=== PATIENT | female | born 1945 | race Caucasian/White ===

== ENCOUNTER 2018-02-24 10:44 | Emergency (ER) | payer MEDICARE, OTHER ==
[~2018-02-24] VITALS: Ht 152.4 cm; Wt 77.1 kg
[~2018-02-24 10:44] MED LIST: CEPH500 PO; CYAN500 PO; Cipro500 MG PO; Cranberry300 MG PO; Flagyl500 MG PO; LOSA50 PO; OMEP20ER PO; RANI150 PO; VITAMIN D-32000 UNIT PO; VITAMIN D5000 UNIT PO; Zantac150 MG PO
[2018-02-24] MEDS ORDERED: HYDCHL12.5 PO (11:14)
[2018-02-24 11:16] LABS: BASOPHILS ABSOLUTE AUTO 0.07 K/mm3 (0.00-0.23); BASOPHILS PERCENT AUTO 1 % (0-2); EOSINOPHILS ABSOLUTE AUTO 0.03 K/mm3 (0.00-0.68); EOSINOPHILS PERCENT AUTO 0 % (0-6); Hematocrit 44.4 % (33.0-51.0); Hemoglobin 15.2 g/dL (11.5-16.0); IMMATURE GRAN ABSOLUTE AUTO 0.08 K/mm3 (0.00-0.10); IMMATURE GRAN PERCENT AUTO 1 % (0-1); LYMPHOCYTES ABSOLUTE AUTO 3.24 K/mm3 (0.84-5.20); LYMPHOCYTES PERCENT AUTO 23 % (21-46); MONOCYTES ABSOLUTE AUTO 1.03 K/mm3 (0.16-1.47); MONOCYTES PERCENT AUTO 7 % (4-13); Mean Corpuscular HGB 34.4 pg (26.0-34.0); Mean Corpuscular HGB Conc 34.2 g/dL (31.5-36.5); Mean Corpuscular Volume 101 fL (80-100); Mean Platelet Volume 9.7 fL (9.1-12.4); NEUTROPHILS ABSOLUTE AUTO 9.91 K/mm3 (1.96-9.15); NEUTROPHILS PERCENT AUTO 69 % (41-73); Platelet Count 137 K/mm3 (150-400); RDW Coefficient Variation 13.3 % (11.7-14.2); RDW Standard Deviation 49.4 fL (35.1-46.3); Red Blood Cell Count 4.42 M/mm3 (3.80-5.20); White Blood Cell Count 14.36 K/mm3 (4.00-11.30)
[2018-02-24 11:23] LABS: Source, Urine Clean Catch
[2018-02-24 11:25] LABS: Bilirubin, Urine Neg (Neg); Blood, Urine 4+ (Neg); Glucose Qualitative, Urine Neg (Neg); Ketones, Urine Neg (Neg); Leukocyte Esterase, Urine 3+ (Neg); Nitrite, Urine Neg (Neg); Protein, Urine 1+ (Neg); Specific Gravity, Urine 1.015 (1.003-1.022); Urobilinogen, Urine 1+ (Normal)
[2018-02-24 11:36] LABS: Alanine Aminotransfer (ALT/SGP 73 U/L (12-78); Albumin, Blood 2.9 g/dL (3.4-5.0); Albumin/Globulin Ratio 0.5 (0.8-1.8); Alk Phos 178 U/L (50-136); Anion Gap 7 mmol/L (6-16); Aspartate Aminotrans (AST/SGOT 68 U/L (12-37); Blood Urea Nitrogen 19 mg/dL (8-24); Bun/Creatinine Ratio 21.2 (12.0-20.0); CO2, Blood 20 mmol/L (21-32); Calcium, Blood 9.2 mg/dL (8.5-10.1); Chloride, Blood 109 mmol/L (98-108); Globulin, Blood 5.7 g/dL (2.2-4.0); Glomerular Filtration Rate >60 (60-); Glucose, Blood 105 mg/dL (70-99); Sodium, Blood 136 mmol/L (136-145); Total Protein, Blood 8.6 g/dL (6.4-8.2)
[2018-02-24 11:47] LABS: Appearance, Urine Cloudy (Clear); Color, Urine Yellow (P-Yellow)
[2018-02-24 11:48] LABS: Bacteria Many /hpf; Squamous Epithelial Cells Few /hpf (Few); White Blood Cells, Urine 25-50 /hpf (0-5)
[2018-02-24 11:49] LABS: Amorphous Light (0-Heavy)
[2018-02-24] MEDS ORDERED: CIPR500 PO (12:10)
[2018-02-24] MEDS ORDERED: Flagyl500 MG PO (12:10)
== END 2018-02-24 12:23 | disposition home or self-care (01) ==
LOC: ER 10:44
PROVIDERS: Emergency Medicine
DX: K57.92 Diverticulitis of intestine, part unspecified, without perforation or abscess without bleeding (principal); E80.7 Disorder of bilirubin metabolism, unspecified; Z88.5 Allergy status to narcotic agent; Z79.899 Other long term (current) drug therapy; Z79.2 Long term (current) use of antibiotics; I10 Essential (primary) hypertension; Z87.891 Personal history of nicotine dependence
CPT/HCPCS: 36415; 80053; 81001; 83690; 85025; 87077; 87086; 87186; 99284

== ENCOUNTER 2018-05-12 07:12 | Day surgery (SDC) | payer MEDICARE, OTHER ==
[~2018-05-12] VITALS: Ht 154.9 cm; Wt 74.6 kg
[~2018-05-12 07:12] MED LIST changes: +ACID REDUCER 1150 MG PO; +Adult Low Dose81 MG PO; +CIPR500 PO; +HYDCHL12.5 PO; +Hydrochloroth12.5 MG PO; +L-Glutamine500 MG PO; +MELA3; +Milk Thistle150 MG PO; +PROBIOTIC1 EAC1 PO; +TURMERIC500 M2 PO; +VITAMIN B-121000 MCG PO
[2018-05-12] MEDS ORDERED: Omeprazole20 M1 (07:43)
== END 2018-05-12 10:24 | disposition home or self-care (01) ==
LOC: ORSCSDS 07:12
PROVIDERS: Student in an Organized Health Care Education/Training Program
PROC: 3E0H8GC Introduction of Other Therapeutic Substance into Lower GI, Via Natural or Artificial Opening Endoscopic (ICD-10-PCS; principal; 2018-05-12 08:30)
PROC: 0DBK8ZX Excision of Ascending Colon, Via Natural or Artificial Opening Endoscopic, Diagnostic (ICD-10-PCS; principal; 2018-05-12 08:30)
PROC: 0DJ08ZZ Inspection of Upper Intestinal Tract, Via Natural or Artificial Opening Endoscopic (ICD-10-PCS; principal; 2018-05-12 08:30)
PROC: 0DBN8ZX Excision of Sigmoid Colon, Via Natural or Artificial Opening Endoscopic, Diagnostic (ICD-10-PCS; principal; 2018-05-12 08:30)
PROC: 0DBM8ZX Excision of Descending Colon, Via Natural or Artificial Opening Endoscopic, Diagnostic (ICD-10-PCS; principal; 2018-05-12 08:30)
DX: K21.9 Gastro-esophageal reflux disease without esophagitis (principal); K74.60 Unspecified cirrhosis of liver; K44.9 Diaphragmatic hernia without obstruction or gangrene; K76.6 Portal hypertension; K31.89 Other diseases of stomach and duodenum; Z86.010 Personal history of colon polyps; K57.30 Diverticulosis of large intestine without perforation or abscess without bleeding; D12.2 Benign neoplasm of ascending colon; D12.4 Benign neoplasm of descending colon; K63.5 Polyp of colon; E78.5 Hyperlipidemia, unspecified; I10 Essential (primary) hypertension; Z79.899 Other long term (current) drug therapy; Z79.82 Long term (current) use of aspirin
CPT/HCPCS: 88305; J0330; J1980; J2405

== ENCOUNTER 2018-07-21 10:36 | Day surgery (SDC) | payer MEDICARE, OTHER ==
[~2018-07-21] VITALS: Ht 152.4 cm; Wt 71.4 kg
[~2018-07-21 10:36] MED LIST changes: +Omeprazole20 M1
--- NOTE | 2018-07-21 14:06 | NUR ---
07/21/18 1406 Rosa Lai LATE ENTRY 1315: UPDATED FAMILY ON PROCEDURE DELAY AND THAT PT IS STABLE AND DOIN WELL. FAMILY SAID "THANK YOU" 1335: FAMILY UPDATED ON DELAY. 1355: FAMILY UPDATED ON DELAY.
--- NOTE | 2018-07-21 14:43 | NUR ---
07/21/18 1443 Laurie Barros 76ML NORMAL SALINE WITH INDIGO CARMINE USED TO RAISE MULTIPLE COLON POLYPS 6ML ELEVIEW USED TO RAISE ONE POLYP
--- NOTE | 2018-07-21 15:33 | NUR ---
07/21/18 1533 Jeana Gleason PT DENIED PAIN AND NAUSEA WHILE IN STEP DOWN. VSS WHILE IN STEP DOWN. RN ASSISTED PT TO GET CLEANED UP WITH BATH WIPES AND DRESS. RN ASSISTED PT TO THE RESTROOM VIA WHEELCHAIR. PT TAKEN OUT TO DAUGHTER'S CAR VIA WHEELCHAIR. PT SENT HOME WITH PERSONAL BELONGINGS AN DISCHARGE INSTRUCTION.
== END 2018-07-21 15:32 | disposition home or self-care (01) ==
LOC: ORSCSDS 10:36
PROVIDERS: Student in an Organized Health Care Education/Training Program
PROC: 0DBK8ZX Excision of Ascending Colon, Via Natural or Artificial Opening Endoscopic, Diagnostic (ICD-10-PCS; principal; 2018-07-21 12:00)
PROC: 0DBM8ZX Excision of Descending Colon, Via Natural or Artificial Opening Endoscopic, Diagnostic (ICD-10-PCS; principal; 2018-07-21 12:00)
DX: Z12.11 Encounter for screening for malignant neoplasm of colon (principal); Z86.010 Personal history of colon polyps; D12.2 Benign neoplasm of ascending colon; D12.4 Benign neoplasm of descending colon; K57.30 Diverticulosis of large intestine without perforation or abscess without bleeding; K74.60 Unspecified cirrhosis of liver; K64.9 Unspecified hemorrhoids; K21.9 Gastro-esophageal reflux disease without esophagitis; I10 Essential (primary) hypertension; Z87.891 Personal history of nicotine dependence; Z79.899 Other long term (current) drug therapy
CPT/HCPCS: 88305; J2405; J7120

== ENCOUNTER 2019-02-16 06:43 | Day surgery (SDC) | payer MEDICARE, OTHER ==
[~2019-02-16] VITALS: Ht 152.4 cm; Wt 73.3 kg
--- NOTE | 2019-02-16 07:34 | NUR ---
02/16/19 0734 BROOKE HARMON ONE BAD IV, ONE GOOD. HARD STICK
--- NOTE | 2019-02-16 08:21 | NUR ---
02/16/19 0821 Dorene Pearson SIMETHICONE USED DURING PROCEDURE.
--- NOTE | 2019-02-16 09:53 | NUR ---
02/16/19 0953 Bipin Tolbert PT DENIES ANYTHING PO IN STEPDOWN. PT STATES THEY ARE NAUSEOUS. DR BORGES IN ROOM AND NOTIFIED. PT MEDICATED PER ORDER, SEE EMAR. PT STATES THEY STILL FEEL "A LITTLE QUEASY." DR BORGES SAYS OK TO DISCHARGE. PT AND DAUGHTER INSTRUCTED TO JUST HAVE PT REST UP AND TAKE IT EASY FOR THE REST OF THE DAY. BOTH STATE AN UNDERSTANDING.
== END 2019-02-16 09:45 | disposition home or self-care (01) ==
LOC: ORSCSDS 06:43
PROVIDERS: Student in an Organized Health Care Education/Training Program
PROC: 0DBN8ZX Excision of Sigmoid Colon, Via Natural or Artificial Opening Endoscopic, Diagnostic (ICD-10-PCS; principal; 2019-02-16 08:00)
PROC: 0DBL8ZX Excision of Transverse Colon, Via Natural or Artificial Opening Endoscopic, Diagnostic (ICD-10-PCS; principal; 2019-02-16 08:00)
PROC: 0DBK8ZX Excision of Ascending Colon, Via Natural or Artificial Opening Endoscopic, Diagnostic (ICD-10-PCS; principal; 2019-02-16 08:00)
PROC: 0DBM8ZX Excision of Descending Colon, Via Natural or Artificial Opening Endoscopic, Diagnostic (ICD-10-PCS; principal; 2019-02-16 08:00)
DX: Z86.010 Personal history of colon polyps (principal); D12.2 Benign neoplasm of ascending colon; D12.3 Benign neoplasm of transverse colon; D12.4 Benign neoplasm of descending colon; K57.30 Diverticulosis of large intestine without perforation or abscess without bleeding; K64.8 Other hemorrhoids; I10 Essential (primary) hypertension; Z87.891 Personal history of nicotine dependence; Z79.899 Other long term (current) drug therapy; Z79.82 Long term (current) use of aspirin
CPT/HCPCS: 88305; J0330; J0461; J2405; J2704; J7120

== ENCOUNTER 2020-02-16 12:27 | Emergency (ER) | payer MEDICARE, OTHER ==
[~2020-02-16] VITALS: Ht 152.4 cm; Wt 72.6 kg
[~2020-02-16 12:27] MED LIST changes: +Aspir 8181 MG PO; +CEFP200 PO; +MECL12.5 PO
[2020-02-16 12:45] LABS: Source, Urine Clean Catch
[2020-02-16 12:52] LABS: Appearance, Urine Clear (Clear); Bilirubin, Urine Neg (Neg); Blood, Urine 3+ (Neg); Color, Urine Yellow (P-Yellow); Glucose Qualitative, Urine Neg (Neg); Ketones, Urine 1+ (Neg); Leukocyte Esterase, Urine 2+ (Neg); Nitrite, Urine Neg (Neg); Protein, Urine Neg (Neg); Specific Gravity, Urine 1.015 (1.003-1.022); Urobilinogen, Urine 1+ (Normal)
[2020-02-16 13:03] LABS: Transitional Epithelial Cells Few /hpf (0-Rare)
[2020-02-16 13:04] LABS: Squamous Epithelial Cells Mod /hpf (Few)
[2020-02-16 13:05] LABS: Bacteria Mod /hpf; Hyaline Casts 0-2 /lpf (0-2)
[2020-02-16 13:40] LABS: BASOPHILS ABSOLUTE AUTO 0.05 K/mm3 (0.00-0.23); BASOPHILS PERCENT AUTO 1 % (0-2); EOSINOPHILS PERCENT AUTO 3 % (0-6); Hematocrit 30.5 % (33.0-51.0); Hemoglobin 9.8 g/dL (11.5-16.0); IMMATURE GRAN ABSOLUTE AUTO 0.03 K/mm3 (0.00-0.10); IMMATURE GRAN PERCENT AUTO 0 % (0-1); LYMPHOCYTES ABSOLUTE AUTO 2.07 K/mm3 (0.84-5.20); LYMPHOCYTES PERCENT AUTO 27 % (21-46); MONOCYTES ABSOLUTE AUTO 0.79 K/mm3 (0.16-1.47); MONOCYTES PERCENT AUTO 10 % (4-13); Mean Corpuscular HGB 35.8 pg (26.0-34.0); Mean Corpuscular HGB Conc 32.1 g/dL (31.5-36.5); Mean Corpuscular Volume 111 fL (80-100); Mean Platelet Volume 11.3 fL (9.1-12.4); NEUTROPHILS PERCENT AUTO 60 % (41-73); Platelet Count 97 K/mm3 (150-400); RDW Coefficient Variation 14.6 % (11.7-14.2); RDW Standard Deviation 59.5 fL (35.1-46.3); Red Blood Cell Count 2.74 M/mm3 (3.80-5.20); White Blood Cell Count 7.74 K/mm3 (4.00-11.30)
[2020-02-16 13:51] LABS: Albumin, Blood 2.3 g/dL (3.4-5.0); Albumin/Globulin Ratio 0.4 (0.8-1.8); Bilirubin, Total 4.8 mg/dL (0.1-1.0); Bun/Creatinine Ratio 24.3 (12.0-20.0); Calcium, Blood 8.9 mg/dL (8.5-10.1); Creatinine, Blood 1.11 mg/dL (0.40-1.00); Globulin, Blood 5.7 g/dL (2.2-4.0); Potassium, Blood 3.9 mmol/L (3.5-5.5)
[2020-02-16] MEDS ORDERED: CEFP200 PO (14:31)
[2020-02-16] MEDS ORDERED: KETO10 PO (15:13)
[2020-02-17] MEDS ORDERED: ONDA4ODT MM (15:02)
[2020-02-17] MEDS ORDERED: Norco 5-325 Ta1 EACH PO (15:02)
== END 2020-02-16 15:15 | disposition home or self-care (01) ==
LOC: ER 12:27
PROVIDERS: Emergency Medicine; Physician Assistant
DX: N39.0 Urinary tract infection, site not specified (principal); I10 Essential (primary) hypertension; Z88.2 Allergy status to sulfonamides; Z88.8 Allergy status to other drugs, medicaments and biological substances; Z88.5 Allergy status to narcotic agent; Z79.82 Long term (current) use of aspirin; Z87.442 Personal history of urinary calculi; Z79.899 Other long term (current) drug therapy
CPT/HCPCS: 36415; 76770; 80053; 81001; 83690; 85025; 87086; 96361; 96365; 96375; 99284-25; J0696; J1885; J7030

== ENCOUNTER 2020-05-30 08:51 | Day surgery (SDC) | payer MEDICARE, OTHER ==
[~2020-05-30] VITALS: Ht 152.4 cm; Wt 68.9 kg
[~2020-05-30 08:51] MED LIST changes: +HYDROCHLOROTH12.5 MG PO; +KETO10 PO; +MAG-OXIDE MAGN200 MG PO; +Norco 5-325 Ta1 EACH PO; +ONDA4ODT MM; +VITAMIN B125000 MC1 PO
[2020-05-30] MEDS ORDERED: FISH OIL 1,2001 EAC7 (09:32)
== END 2020-05-30 10:58 | disposition home or self-care (01) ==
LOC: ORSCSDS 08:51
PROVIDERS: Student in an Organized Health Care Education/Training Program
PROC: 0DJ08ZZ Inspection of Upper Intestinal Tract, Via Natural or Artificial Opening Endoscopic (ICD-10-PCS; principal; 2020-05-30 10:00)
DX: K74.60 Unspecified cirrhosis of liver (principal); Z13.810 Encounter for screening for upper gastrointestinal disorder; I85.00 Esophageal varices without bleeding; K76.6 Portal hypertension; K31.89 Other diseases of stomach and duodenum; K44.9 Diaphragmatic hernia without obstruction or gangrene; Z87.891 Personal history of nicotine dependence; Z79.899 Other long term (current) drug therapy
CPT/HCPCS: J2704; J7120

== ENCOUNTER 2020-06-21 10:54 | Day surgery (SDC) | payer MEDICARE, OTHER ==
[~2020-06-21 10:54] MED LIST changes: +FISH OIL 1,2001 EAC7
[2020-06-21] MEDS ORDERED: FURO20 PO (15:38)
[2020-06-21] MEDS ORDERED: POTA10T PO (15:38)
[2020-06-21] MEDS ORDERED: SPIR50 PO (15:39)
[2020-06-21] MEDS ORDERED: HYDR1TAB94 (15:39)
--- NOTE | 2020-06-21 17:40 | NUR ---
NAUSEA & BACK PAIN. PT C/O GRADUAL INCREASE IN HER CHRONIC BACK PAIN TO THE LEFT SIDE. PT BECAME NAUSEATED FROM PAIN AND VOMITED A SMALL AMOUNT. PT STATES THAT THIS PAIN & NAUSEA HAPPENS INTERMITTENLY AT HOME. CAITLIN CHERRY CALLED AND ORDERED TO GIVE OT ORDERS OF ZOFRAN AND OXYCODONE FOR THE PT AT 1700. ORDER FOR A CBC POST TRANSFUSION TAKEN AT THIS TIME. PT UPDATED ON PLAN AND TREATED FOR PAIN & NAUSEA. PT NOW AMBULATING ON UNIT TO HELP WITH BACK PAIN.
[2020-06-21 18:22] LABS: Hematocrit 30.5 % (33.0-51.0); Mean Corpuscular HGB 34.6 pg (26.0-34.0); Mean Corpuscular HGB Conc 32.8 g/dL (31.5-36.5); Platelet Count 57 K/mm3 (150-400); RDW Coefficient Variation 20.4 % (11.7-14.2); RDW Standard Deviation 79.7 fL (35.1-46.3); Red Blood Cell Count 2.89 M/mm3 (3.80-5.20); White Blood Cell Count 5.14 K/mm3 (4.00-11.30)
[2020-06-21 18:25] LABS: Mean Corpuscular Volume 106 fL (80-100)
== END 2020-06-21 18:05 | disposition home or self-care (01) ==
LOC: ATC 10:54
PROVIDERS: Physician Assistant Medical
DX: D64.9 Anemia, unspecified (principal); E78.2 Mixed hyperlipidemia; K21.9 Gastro-esophageal reflux disease without esophagitis; E88.01 Alpha-1-antitrypsin deficiency; K76.6 Portal hypertension; E80.6 Other disorders of bilirubin metabolism; I10 Essential (primary) hypertension; Z88.5 Allergy status to narcotic agent; Z79.82 Long term (current) use of aspirin; Z79.899 Other long term (current) drug therapy; Z87.891 Personal history of nicotine dependence
CPT/HCPCS: 36430; 85025; 86850; 86900; 86901; 86920; 96374; J2405; J7050; P9016

== ENCOUNTER 2020-07-19 13:54 | Inpatient (IN) | payer MEDICARE, OTHER ==
[~2020-07-19] VITALS: Ht 152.4 cm; Wt 72.6 kg
[~2020-07-19 13:54] MED LIST changes: +FURO20 PO; +HYDR1TAB94; +POTA10T PO; +SPIR50 PO
[2020-07-19 15:25] LABS: BASOPHILS ABSOLUTE AUTO 0.08 K/mm3 (0.00-0.23); BASOPHILS PERCENT AUTO 1 % (0-2); EOSINOPHILS ABSOLUTE AUTO 0.03 K/mm3 (0.00-0.68); EOSINOPHILS PERCENT AUTO 0 % (0-6); Hematocrit 35.2 % (33.0-51.0); Hemoglobin 11.6 g/dL (11.5-16.0); IMMATURE GRAN ABSOLUTE AUTO 0.11 K/mm3 (0.00-0.10); IMMATURE GRAN PERCENT AUTO 1 % (0-1); LYMPHOCYTES ABSOLUTE AUTO 0.96 K/mm3 (0.84-5.20); LYMPHOCYTES PERCENT AUTO 7 % (21-46); MONOCYTES ABSOLUTE AUTO 0.94 K/mm3 (0.16-1.47); MONOCYTES PERCENT AUTO 6 % (4-13); Mean Corpuscular HGB 36.9 pg (26.0-34.0); Mean Corpuscular Volume 112 fL (80-100); Mean Platelet Volume 10.7 fL (9.1-12.4); NEUTROPHILS ABSOLUTE AUTO 12.65 K/mm3 (1.96-9.15); NEUTROPHILS PERCENT AUTO 86 % (41-73); Platelet Count 112 K/mm3 (150-400); RDW Coefficient Variation 20.3 % (11.7-14.2); RDW Standard Deviation 83.3 fL (35.1-46.3); Red Blood Cell Count 3.14 M/mm3 (3.80-5.20); White Blood Cell Count 14.77 K/mm3 (4.00-11.30)
[2020-07-19 15:40] LABS: Albumin, Blood 2.2 g/dL (3.4-5.0); Albumin/Globulin Ratio 0.4 (0.8-1.8); Bilirubin, Total 9.2 mg/dL (0.1-1.0); Bun/Creatinine Ratio 27.4 (12.0-20.0); Calcium, Blood 10.3 mg/dL (8.5-10.1); Creatinine, Blood 1.17 mg/dL (0.40-1.00); Globulin, Blood 5.8 g/dL (2.2-4.0); Potassium, Blood 4.4 mmol/L (3.5-5.5)
[2020-07-19 16:56] LABS: Source, Urine Voided
[2020-07-19 16:58] LABS: Appearance, Urine Clear (Clear); Blood, Urine 2+ (Neg); Color, Urine Amber (P-Yellow); Glucose Qualitative, Urine Neg (Neg); Ketones, Urine 2+ (Neg); Leukocyte Esterase, Urine 2+ (Neg); Nitrite, Urine Pos (Neg); Protein, Urine 2+ (Neg); Urobilinogen, Urine 3+ (Normal)
[2020-07-19 17:04] LABS: Bilirubin, Urine 2+ (Neg)
[2020-07-19 17:07] LABS: Bacteria Mod /hpf; Calcium Oxalate Crystals Few /hpf; Hyaline Casts 0-2 /lpf (0-2); Squamous Epithelial Cells Few /hpf (Few); Transitional Epithelial Cells Few /hpf (0-Rare)
[2020-07-19 20:31] LABS: Influenza A, PCR Negative (NEGATIVE); Influenza B, PCR Negative (NEGATIVE); Resp Syncytial Virus, PCR Negative (NEGATIVE); SARS-Cov-2 (COVID-19) PCR, MMC Negative (NEGATIVE)
[2020-07-19] MEDS ORDERED: HYDCHL12.5 PO (20:57)
[2020-07-19 21:54] LABS: International Normalized Ratio 2.36; Prothrombin Time Results 24.1 Sec (9.7-11.5)
[2020-07-19 21:57] LABS: Albumin, Blood 1.9 g/dL (3.4-5.0)
[2020-07-20 04:36] LABS: Hematocrit 25.6 % (33.0-51.0); Hemoglobin 8.4 g/dL (11.5-16.0)
[2020-07-20 05:02] LABS: Albumin, Blood 1.8 g/dL (3.4-5.0); Albumin/Globulin Ratio 0.4 (0.8-1.8); Bilirubin, Total 7.7 mg/dL (0.1-1.0); Bun/Creatinine Ratio 28.7 (12.0-20.0); Calcium, Blood 9.4 mg/dL (8.5-10.1); Creatinine, Blood 1.15 mg/dL (0.40-1.00); Globulin, Blood 4.8 g/dL (2.2-4.0); Potassium, Blood 4.9 mmol/L (3.5-5.5); Total Protein, Blood 6.6 g/dL (6.4-8.2)
--- NOTE | 2020-07-20 06:06 | NUR ---
SHIFT SUMMARY PT RESTED WELL THROUGH NIGHT. ALERT AND ORIENTED - ABLE TO MAKE NEEDS KNOWN. HR NSR. NO C/O CHEST PAIN. SATS >92% ON ROOM AIR. NPO D/T NAUSEA AND VOMITING - SEE EMAR. PLANNING FOR PARACENTESIS TODAY. PT SEEMS A LITTLE TEARFUL, BUT CAN EXPRESS CONCERNS. SBA TO BSC FOR VOIDS AND BM. C/O OF SOME DISCOMFORT IN ABD, BUT NOT ENOUGH TO WANT PAIN MEDICATION. VSS. CALL LIGHT WITHIN REACH, BED IN LOWEST POSITION. WILL CONTINUE TO MONITOR.
--- NOTE | 2020-07-20 11:46 | NUR ---
Spiritual care visit conducted. Patient tells me about the how her nausea, vomiting and pain were prior to her admission to the hospital and how difficult it was to manage on her own. She talks about how, for the most part, all her symptoms were managed at the time of the visit. She tells me about her 3 sons and her daughter and that her son, Deep, is driving down from [place] today to visit her. Patient also shares about her Scientologist marco and that this is a source of strength and comfort for her. She explains that she knows things are not looking great for her furture health-maki but says that if her marco in this could bring all her family to [place] than it is worth it. I reinforce helpful attitudes and practices and provide therapeutic listening, pastoral counseling center manager and prayer. Patient responds well and shows signs of being encouraged in her marco. I will continue to remain available to patient and family.
[2020-07-20 13:49] LABS: International Normalized Ratio 2.52; Prothrombin Time Results 25.6 Sec (9.7-11.5)
--- NOTE | 2020-07-20 17:54 | NUR ---
SHIFT NOTE PT HAS BEEN RESTING WELL IN BED T/O THE DAY, REPORTS SOME PAIN THIS AM AND THIS EVENING. PT WAS MEDICATED WITH FENTANYL IVP FOR PAIN WHICH WAS TOELRATED WELL. PT HAS BEEN UP TO [facility] WITH PCT. PT ANSWERING QUESTIONS APPROPRIATELY IN FUL SENTENCES. PT HAS NOT BEEN TAKEN FOR PARACENTESIS BWCAUSE INR IS TOO HIGH.
[2020-07-21 03:39] LABS: BASOPHILS ABSOLUTE AUTO 0.03 K/mm3 (0.00-0.23); BASOPHILS PERCENT AUTO 0 % (0-2); EOSINOPHILS ABSOLUTE AUTO 0.03 K/mm3 (0.00-0.68); EOSINOPHILS PERCENT AUTO 0 % (0-6); Hemoglobin 9.2 g/dL (11.5-16.0); IMMATURE GRAN ABSOLUTE AUTO 0.09 K/mm3 (0.00-0.10); IMMATURE GRAN PERCENT AUTO 1 % (0-1); LYMPHOCYTES PERCENT AUTO 11 % (21-46); MONOCYTES ABSOLUTE AUTO 1.46 K/mm3 (0.16-1.47); MONOCYTES PERCENT AUTO 10 % (4-13); Mean Corpuscular HGB 37.2 pg (26.0-34.0); Mean Corpuscular HGB Conc 32.9 g/dL (31.5-36.5); Mean Corpuscular Volume 113 fL (80-100); Mean Platelet Volume 10.2 fL (9.1-12.4); NEUTROPHILS ABSOLUTE AUTO 11.14 K/mm3 (1.96-9.15); NEUTROPHILS PERCENT AUTO 78 % (41-73); Platelet Count 89 K/mm3 (150-400); Red Blood Cell Count 2.47 M/mm3 (3.80-5.20); White Blood Cell Count 14.25 K/mm3 (4.00-11.30)
[2020-07-21 03:52] LABS: International Normalized Ratio 2.23; Prothrombin Time Results 22.8 Sec (9.7-11.5)
[2020-07-21 03:55] LABS: Albumin, Blood 1.9 g/dL (3.4-5.0); Albumin/Globulin Ratio 0.4 (0.8-1.8); Bilirubin, Total 7.3 mg/dL (0.1-1.0); Bun/Creatinine Ratio 32.2 (12.0-20.0); Calcium, Blood 9.7 mg/dL (8.5-10.1); Creatinine, Blood 1.15 mg/dL (0.40-1.00); Globulin, Blood 4.9 g/dL (2.2-4.0); Potassium, Blood 4.3 mmol/L (3.5-5.5); Total Protein, Blood 6.8 g/dL (6.4-8.2)
--- NOTE | 2020-07-21 05:43 | NUR ---
SHIFT SUMMARY PT ALERT AND ORIENTED X 4. PT ABLE TO TURN SELF IN BED NEEDED. SLEPT T/O SHIFT. HR STABLE. BP STABLE. OXYGEN SATURATION MAINTAINED ABOVE 92% ON RA. PT REPORTS NO CP OR PRESSURE. WILL CONTINUE TO MONITOR UNTIL REPORT GIVEN TO DAYSHIFT RN.
--- NOTE | 2020-07-21 10:38 | NUR ---
Patient gave this student permission for care at 0800 on 07/23/20.
[2020-07-21 13:06] LABS: International Normalized Ratio 2.08; Prothrombin Time Results 21.4 Sec (9.7-11.5)
--- NOTE | 2020-07-21 14:18 | NUR ---
Spiritual care visit conducted. Patient is lying in bed and resting but easily awakens to the sound of her name. Patient tells me about hos she is nervous about the paracentesis procedure that is forthcoming in this day. She also tells me about how tired she is beyond just her current setting but with the daily struggles for the last 3yrs. Patient is tearful at times. Patient has a very strong marco and has some fight left, she just states that the pain, the nausea and vomiting is exhausting. Patient shares about her family and their love for her and how that is so meaningful. I provide therapeutic listening, anxiety containment and prayer. Patient responds well and displays evidence of reduced stress. I will continue to remain available to patient and family.
--- NOTE | 2020-07-21 18:46 | NUR ---
SHIFT NOTE PT RECIEVED 2 DOSES OF VITAMIN K DURING THIS SHIFT, INR WAS MEASURED AT 2.08, PT WAS NOT ABLE TO HAVE PARACENTESIS TODAY. PT HAS BEEN MEDICATED FOR PAIN X2 TODAY WHICH SHE TOLERATED WELL. VSS. REPOSITIONED T/O THE DAY TO ASSIST WITH PAIN RELIED. PT WITH POOR APPETITE
[2020-07-22 04:28] LABS: BASOPHILS ABSOLUTE AUTO 0.03 K/mm3 (0.00-0.23); BASOPHILS PERCENT AUTO 0 % (0-2); EOSINOPHILS ABSOLUTE AUTO 0.06 K/mm3 (0.00-0.68); EOSINOPHILS PERCENT AUTO 1 % (0-6); Hematocrit 23.5 % (33.0-51.0); Hemoglobin 7.8 g/dL (11.5-16.0); IMMATURE GRAN ABSOLUTE AUTO 0.26 K/mm3 (0.00-0.10); IMMATURE GRAN PERCENT AUTO 2 % (0-1); LYMPHOCYTES ABSOLUTE AUTO 1.28 K/mm3 (0.84-5.20); LYMPHOCYTES PERCENT AUTO 10 % (21-46); MONOCYTES ABSOLUTE AUTO 1.51 K/mm3 (0.16-1.47); MONOCYTES PERCENT AUTO 12 % (4-13); Mean Corpuscular HGB 37.1 pg (26.0-34.0); Mean Corpuscular HGB Conc 33.2 g/dL (31.5-36.5); Mean Corpuscular Volume 112 fL (80-100); Mean Platelet Volume 10.3 fL (9.1-12.4); NEUTROPHILS ABSOLUTE AUTO 9.87 K/mm3 (1.96-9.15); NEUTROPHILS PERCENT AUTO 76 % (41-73); Platelet Count 84 K/mm3 (150-400); RDW Coefficient Variation 18.9 % (11.7-14.2); RDW Standard Deviation 78.6 fL (35.1-46.3); White Blood Cell Count 13.01 K/mm3 (4.00-11.30)
[2020-07-22 04:41] LABS: International Normalized Ratio 1.88; Prothrombin Time Results 19.4 Sec (9.7-11.5)
[2020-07-22 04:45] LABS: Albumin, Blood 1.8 g/dL (3.4-5.0); Albumin/Globulin Ratio 0.4 (0.8-1.8); Bilirubin, Total 8.2 mg/dL (0.1-1.0); Bun/Creatinine Ratio 36.7 (12.0-20.0); Calcium, Blood 9.5 mg/dL (8.5-10.1); Creatinine, Blood 1.09 mg/dL (0.40-1.00); Globulin, Blood 4.2 g/dL (2.2-4.0); Potassium, Blood 4.1 mmol/L (3.5-5.5)
--- NOTE | 2020-07-22 05:14 | NUR ---
PHYSICIAN NOTIFIED PHYSICIAN NOTIFIED OF PT'S INCREASE IN PAIN. MEDICATION ORDERED PER PHYSICIAN. PHYSICIAN NOTIFIED OF PT'S HGB DROP OF 9.2 TO 7.8 AND ALBUMIN LEVEL OF 1.8. NO ORDERS PROVIDED.
--- NOTE | 2020-07-22 06:11 | NUR ---
SHIFT SUMMARY PT REPORTS INCREASE IN PAIN T/O SHIFT. PHYSICIAN NOTIFIED. MEDICATION ORDERED PER PHYSICIAN AND GIVEN PER EMAR. PT REPORTS RELIEF. HR STABLE. BP STABLE. PT ALERT AND ORIENTED X 4. PT ABLE TO TURN SELF IN BED NEEDED. OXYGEN SATURATION MAINTAINED ABOVE 92% ON RA. WILL CONTINUE TO MONITOR UNTIL REPORT GIVEN TO DAYSHIFT RN.
[2020-07-22 14:55] LABS: Automated BF RBC Count 0.004 M/mm3 (0-0); Automated BF WBC Count 2.899 K/mm3 (0-999); Body Fluid WBC Count 2899 /mm3 (0-999); RBC Count, Body Fluid 4000 /mm3 (0-0)
[2020-07-22 15:17] LABS: pH, Body Fluid 7.9
[2020-07-22 15:30] LABS: Albumin, Body Fluid 0.3 g/dL
[2020-07-22 15:31] LABS: Color, Body Fluid Yellow (None-Yellow); Glucose, Body Fluid 97 mg/dL; Lactate Dehydrogenase, Body Fl 85 U/L; Protein, Body Fluid 1.2 g/dL; Total Cell Count, Body Fluid 100; Triglycerides, Body Fluid 25 mg/dL
[2020-07-22 15:32] LABS: Appearance, Body Fluid Cloudy (Clear)
--- NOTE | 2020-07-22 18:47 | NUR ---
SHIFT NOTE PT HAS BEEN TO US FOR PARACENTESIS WHERE 3L WERE DRAINED OFF OF ABD. [place] [facility] [place] [facility]. PT HAS BEEN MEDICATED FOR PAIN X3 TODAY. LR RUNNING AT 100ML/HR AT THIS TIME. ABD NOW LESS TAUGHT AND PAINFUL POST PARACENTESIS. SKIN NOTED TO BE LESS JAUNDICED SINCE RETURNING FROM US. PT REMAINS A/O X4, ANSWERING QUESTIONS SLOWLY BUT APPROPRIATELY
[2020-07-23 04:30] LABS: BASOPHILS ABSOLUTE AUTO 0.01 K/mm3 (0.00-0.23); BASOPHILS PERCENT AUTO 0 % (0-2); EOSINOPHILS ABSOLUTE AUTO 0.15 K/mm3 (0.00-0.68); EOSINOPHILS PERCENT AUTO 2 % (0-6); Hematocrit 19.8 % (33.0-51.0); Hemoglobin 6.7 g/dL (11.5-16.0); IMMATURE GRAN ABSOLUTE AUTO 0.08 K/mm3 (0.00-0.10); IMMATURE GRAN PERCENT AUTO 1 % (0-1); LYMPHOCYTES ABSOLUTE AUTO 0.95 K/mm3 (0.84-5.20); LYMPHOCYTES PERCENT AUTO 15 % (21-46); MONOCYTES ABSOLUTE AUTO 0.97 K/mm3 (0.16-1.47); MONOCYTES PERCENT AUTO 15 % (4-13); Mean Corpuscular HGB 37.9 pg (26.0-34.0); Mean Corpuscular HGB Conc 33.8 g/dL (31.5-36.5); Mean Corpuscular Volume 112 fL (80-100); Mean Platelet Volume 10.7 fL (9.1-12.4); NEUTROPHILS ABSOLUTE AUTO 4.38 K/mm3 (1.96-9.15); NEUTROPHILS PERCENT AUTO 67 % (41-73); Platelet Count 51 K/mm3 (150-400); RDW Coefficient Variation 18.5 % (11.7-14.2); RDW Standard Deviation 76.7 fL (35.1-46.3); Red Blood Cell Count 1.77 M/mm3 (3.80-5.20); White Blood Cell Count 6.54 K/mm3 (4.00-11.30)
[2020-07-23 04:47] LABS: Albumin, Blood 1.9 g/dL (3.4-5.0); Albumin/Globulin Ratio 0.5 (0.8-1.8); Bun/Creatinine Ratio 39.4 (12.0-20.0); Calcium, Blood 9.6 mg/dL (8.5-10.1); Creatinine, Blood 1.04 mg/dL (0.40-1.00); Globulin, Blood 3.5 g/dL (2.2-4.0); Potassium, Blood 4.2 mmol/L (3.5-5.5); Total Protein, Blood 5.4 g/dL (6.4-8.2)
--- NOTE | 2020-07-23 08:10 | NUR ---
SHIFT SUMMARY PT STATED HAVING PAIN IN BACK, ABD, AND L SHOULDER T/O THE NIGHT. THE PAIN WAS RELIEVED WITH PRN MEDICATIONS, REPOSITIONING, AND HEAT PAD. PAIN RETURNED SEVERAL TIMES T/O THE SHIFT WHEN MEDICATION WORE OFF AND PT WOKE UP. BP 100'S/50'S. HR 80-90'S. O2 >90% ON ROOM AIR. HGB WAS <7 AT MORNING LABS, 1 UNIT PRBC ORDERED FOR AM. PT STATES ABD DISTENTION IS INCREASING AND BECOMING MORE TENDER BUT JAUNDICE COLOR IS SUBSIDING. PT HAD A QUIET UNEVENTFUL NIGHT.
[2020-07-23 13:23] LABS: Hematocrit 25.5 % (33.0-51.0); Hemoglobin 8.5 g/dL (11.5-16.0)
--- NOTE | 2020-07-23 18:03 | NUR ---
PT SUMMARY: PT WAS STARTED ON LASIX 20MG BID TODAY FOR WATER RETENTION. PT HAS BEEN COMPLAINING OF ABD, SHOULDER AND BACK PAIN TODAY 5 THE HIGHEST OUT OF 10 MANAGED WITH IV FENTANYL 25MCG. PT WAS ENCOURAGED TO SIT UP IN THE CHAIR FOR MEALS PT AGREEABLE TO HELP ALLEVIATE THE PAIN AND REPOSITIONING. VITALS STABLE HRR SINUS ON THE 90'S, BP SYSTOLIC 110-120'S, SATS ABOVE 92% ON RA DENIES SOB/, AFEBRILE. PT USES BEDSIDE COMMODE FOR TOILETING. REMAINS ALERT AND ORIENTED AT BASELINE. DAUGHTER KELSI WAS IN TO VISIT REQUESTED TO TALK TO DR LOZANO ABOUT THE PLAN FOR THE PT, WAS ABLE TO DISCUSS PLAN OF CARE WITH THE DAUGHTER AND PT, BUT THEN THE OTHER DAUGHTER REQUESTED TO HAVE THE PT HAVE A GI CONSULT AND GET TRANSFERRED TO [facility] WHERE THE PT'S LIVER SPECIALISTS IS AT SINCE PT SEEMED TO HAVE NOT IMPROVED WITH STOMACH PAIN AND DISTENDED ABD, THIS ISSUE WAS THEN BROUGHT UP TO DR LOZANO APPARENTLY THERE'S NO ONCALL GI SPECIALIST IS SCHEDULED TODAY WILL FOLLOW-UP IN AM. PT IS NOW RESTING IN BED, DIET ADVANCED TO FULL LIQUID PT WAS ABLE TO TOLERATE DINNER WITHOUT ANY ISSUES. CALL LIGHTS IN REACH, ABLE TO MAKE NEEDS KNOWN WILL MONITOR UNTIL THE END OF SHIFT
[2020-07-24 04:18] LABS: Hematocrit 19.6 % (33.0-51.0); Hemoglobin 6.6 g/dL (11.5-16.0)
[2020-07-24 04:38] LABS: Albumin, Blood 3.4 g/dL (3.4-5.0); Albumin/Globulin Ratio 1.4 (0.8-1.8); Bun/Creatinine Ratio 38.5 (12.0-20.0); Calcium, Blood 9.7 mg/dL (8.5-10.1); Creatinine, Blood 1.04 mg/dL (0.40-1.00); Globulin, Blood 2.5 g/dL (2.2-4.0); Potassium, Blood 3.8 mmol/L (3.5-5.5); Total Protein, Blood 5.9 g/dL (6.4-8.2)
--- NOTE | 2020-07-24 06:37 | NUR ---
SHIFT SUMMARY PT HAD PAIN IN ABD T/O THE NIGHT, STATING THAT THE DISTENTION IN ABD WAS GETTING WORSE. PAIN WAS RELIEVED WITH PRN MEDICATION, HEATING PAD AND REPOSITIONING. BP STABLE 100'S/50'S. HR 80-90'S. O2 SATS HIGH 90'S ON ROOM AIR. HGB WAS 6.6 WITH MORNING LABS, CURRENTLY TRANSFUSING 1 UNIT PRBC. PT OTHERWISE BEEN STABLE WITH A RESTFUL NIGHT.
[2020-07-24 08:22] LABS: Percent Saturation 92.9 % (15.0-50.0)
[2020-07-24 08:59] LABS: Hematocrit 24.9 % (33.0-51.0); Hemoglobin 8.5 g/dL (11.5-16.0); IMMATURE RETIC FRACTION 25.1 % (2.3-16.0); RETIC HGB EQUIVALENT 43.3 pg (28.20-36.60); RETICULOCYTE ABSOLUTE 0.0726 M/mm3 (0.0200-0.1100); RETICULOCYTE COUNT PERCENT 2.95 % (0.50-2.50)
[2020-07-24 09:44] LABS: BASOPHILS ABSOLUTE AUTO 0.03 K/mm3 (0.00-0.23); BASOPHILS PERCENT AUTO 1 % (0-2); EOSINOPHILS ABSOLUTE AUTO 0.18 K/mm3 (0.00-0.68); EOSINOPHILS PERCENT AUTO 4 % (0-6); Hematocrit 24.9 % (33.0-51.0); Hemoglobin 8.5 g/dL (11.5-16.0); IMMATURE GRAN ABSOLUTE AUTO 0.09 K/mm3 (0.00-0.10); IMMATURE GRAN PERCENT AUTO 2 % (0-1); LYMPHOCYTES ABSOLUTE AUTO 1.04 K/mm3 (0.84-5.20); LYMPHOCYTES PERCENT AUTO 21 % (21-46); MONOCYTES ABSOLUTE AUTO 0.67 K/mm3 (0.16-1.47); MONOCYTES PERCENT AUTO 14 % (4-13); Mean Corpuscular HGB 34.3 pg (26.0-34.0); Mean Corpuscular HGB Conc 34.1 g/dL (31.5-36.5); Mean Platelet Volume 10.6 fL (9.1-12.4); NEUTROPHILS ABSOLUTE AUTO 2.94 K/mm3 (1.96-9.15); NEUTROPHILS PERCENT AUTO 60 % (41-73); Red Blood Cell Count 2.48 M/mm3 (3.80-5.20); White Blood Cell Count 4.95 K/mm3 (4.00-11.30)
[2020-07-24 09:50] LABS: Mean Corpuscular Volume 100 fL (80-100)
[2020-07-24 09:54] LABS: Platelet Count 46 K/mm3 (150-400)
--- NOTE | 2020-07-24 17:45 | NUR ---
PT SUMMARY: PT AWAITING TO GET [facility] TRANSFERRED UP TO [facility] WITH HER [facility] SPECIALISTS. AWAITING FOR CALL BACK FOR BED AVAILABILITY. PT DID RECEIVED 1UPRBC THIS MORNING HGB WENT UP TO 8.5. STOOL SAMPLE SENT FOR OCCULT TESTING RESULTS PENDING, NO REPORTED BLOODY STOOLS/ ACTIVE BLEEDING. PT ABDOMEN STILL DISTENDED AND IN PAIN, PAIN MANAGED WITH FENTANYL 25MCG IV Q2HRS PRN AND IS EFFECTIVE. PT ALSO STARTED ON ZOSYN ABD CT SCAN SHOWED POSS STARTING PNA ON THE MID LOBE. PT HAS BEEN USING THE BEDSIDE COMMODE FOR TOILETING UP IN THE CHAIR FOR MEALS.SON JUDE WAS IN TO VISIT [facility] VISITING [facility]. NO OTHER ISSUES REPORTED FOR THE SHIFT, PT HAS BEEN COOPERATIVE AT AL TIMES. VITALS STABLE. WILL MONITOR UNTIL END OF SHIFT
[2020-07-25 11:04] LABS: Stool Occult Blood Guaiac 1 Neg (Neg)
== END 2020-07-25 00:50 | disposition short-term general hospital (02) | DRG 871 ==
LOC: ER 13:54 → PCU 21:17
PROVIDERS: Emergency Medicine; Family Medicine; Internal Medicine; Physician Assistant; ADMIT Internal Medicine
PROC: 0W9G3ZX Drainage of Peritoneal Cavity, Percutaneous Approach, Diagnostic (ICD-10-PCS; principal; 2020-07-22)
PROC: 30233N1 Transfusion of Nonautologous Red Blood Cells into Peripheral Vein, Percutaneous Approach (ICD-10-PCS; 2020-07-22)
DX: A41.9 Sepsis, unspecified organism (principal); K65.2 Spontaneous bacterial peritonitis; R65.21 Severe sepsis with septic shock; D68.9 Coagulation defect, unspecified; E87.2 Acidosis; K76.6 Portal hypertension; N17.9 Acute kidney failure, unspecified; R18.8 Other ascites; D64.9 Anemia, unspecified; D69.6 Thrombocytopenia, unspecified; E86.0 Dehydration; E88.09 Other disorders of plasma-protein metabolism, not elsewhere classified; K73.9 Chronic hepatitis, unspecified; K74.60 Unspecified cirrhosis of liver; I12.9 Hypertensive chronic kidney disease with stage 1 through stage 4 chronic kidney disease, or unspecified chronic kidney disease; N18.30 Chronic kidney disease, stage 3 unspecified; K72.90 Hepatic failure, unspecified without coma; E87.70 Fluid overload, unspecified
CPT/HCPCS: 0241U; 36415; 36430; 49083; 71046; 74176; 74177; 80053; 81001; 82040; 82042; 82140; 82272; 82728; 82945; 83540; 83550; 83605; 83615; 83690; 83986; 84157; 84478; 84484; 85014; 85018; 85025; 85045; 85610; 86850; 86900; 86901; 86923; 87040; 87070; 87075; 87077; 87086; 87186; 87205; 88108; 88305; 89051; 93005; 93010; 96361; 96365-59; 96375; 99285-25; A9270; C1751; J0696; J1940; J2405; J2543; J2765; J3010; J3430; J7050; J7120; P9016; P9046; Q9967